=== PATIENT | male | born 1960 | race Caucasian/White ===

== ENCOUNTER 2018-12-24 21:19 | Inpatient (IN) ==
[2018-12-24] MEDS ORDERED: Piperacillin/Tazobactam 3.375 GM in Water for inj. (sterile) 20 ML 20 ML IVP ONE (22:15)
[2018-12-24] MEDS: *HR* HYDROmorphone (PF) 1 MG/ML SYRINGE IVP ONE ×2 (22:20→22:27)
--- NOTE | 2018-12-24 22:24 | Acute Care Surgery H&P ---
Date of Encounter: 12/24/18 Time of Encounter: 22:22 Assessment and Plan (1) Diverticulitis Current Visit: Yes Status: Acute 58M with perforated diverticulitis and peritonitis on exam; HDS NPO IVF IV abx plan for OR for rosario's procedure... The assessment and plan as outlined above was discussed with the patient and/or family members who expressed understanding and agreement. All questions were answered. History of Present Illness Chief complaint: abdominal pain HPI: Mr. Torres is a 58 year old male H significant for HTN, DM, HLD, prior appendectomy presents with one day history of worsening abdominal pain localized to the LLQ and suprapubic region. The pain is non radiating, but rates a 10/10 with associated anorexia. No reports of fevers, chills, chest pain, nor s hortness of breath. Due to the worsening nature of the pain the patient presents to the ED for evaluation at an OSH. He was subsequently transferred here for further evaluation. A CT scan was obtained which demonstrated significant pneumoperitoneum and inflammation around his sigmoid colon. Past Med Surg Social Fam HX - Past Medical History Medical history: arthritis, diabetes, hypertension Psychiatric history: no psych history - Past Surgical History Surgical History: appendectomy, orthopedic, other Additional surgical history: rotator cuff repair bilat - Social History Smoking Status: Never smoker Smokeless Tobacco Status: No Alcohol use: none Drug use: none - Additional Family History Additional family history: non contributory Medications and Allergies Ascorbate Calcium [Vitamin C] 500 mg PO DAILY 01/03/16 [History] Aspirin 81 mg PO DAILY 01/03/16 [History] Fexofenadine HCl 180 mg PO DAILY 01/03/16 [History] Levothyroxine Sodium [Tirosint] 150 mcg PO DAILY 01/03/16 [History] Metformin HCl [Metformin HCl ER] 2,000 mg PO BID 01/03/16 [History] Nebivolol [Bystolic] 5 mg PO DAILY 01/03/16 [History] Pravastatin Sodium [Pravachol] 80 mg PO DAILY 01/03/16 [History] Empagliflozin [Jardiance] 25 mg PO DAILY 05/20/17 [History] Irbesartan [Avapro] 150 mg PO DAILY 05/20/17 [History] Cyclobenzaprine [Flexeril] 10 mg PO TID #30 tablet 09/10/17 [Rx] Gabapentin [Neurontin] 300 mg PO TID #20 capsule 09/14/17 [Rx] Allergy/AdvReac Type Severity Reaction Status Date / Time Sulfa (Sulfonamide Allergy Hives Verified 12/24/18 21:33 Antibiotics) Review of Systems All systems PM: 12 point ROS negative besides HPI findings General Surgery Exam Initial Vital Signs Temp Pulse Resp BP Pulse Ox 98.4 F 94 24 114/72 94 12/24/18 21:35 12/24/18 21:35 12/24/18 21:35 12/24/18 21:35 12/24/18 21:35 - General physical appearance no distress - Eyes normal ocular movement - ENT normocephalic - Neck trachea midline, no lymphadectomy - Respiratory normal expansion, normal respiratory effort - Cardiovascular Cardiovascular exam: Present: RRR - Abdomen Abdomen general surgery: Present: soft, tender (peritoneal on exam) Abdominal Tenderness: Present: LLQ, suprapubic - Integumentary Integumentary general surgery: Present: warm and dry, no abnormal pigmentation - Neurologic Present: CN 2-12 grossly intact - Musculoskeletal Present: normal posture - Psychiatric Psychiatric general surgery: Present: A&Ox3 Results - Labs All other labs normal. - Imaging CT scan - abdomen: report reviewed, image reviewed CT scan - pelvis: report reviewed, image reviewed
--- NOTE | 2018-12-24 22:34 | Anesthesia Evaluation PreOp ---
Date of Encounter: 12/24/18 Time of Encounter: 23:00 - Past History Planned Operation: Ex lap (likely perforated diverticulum) Cardiac History: HTN, Hyperlipidemia Pulmonary History: SHIVANI Dx CONTENT ARCHITECT History: Denies Any Significant HX Other Medical History: Diabetes Type II Anesthesia History: No Prior Anesthetic Complications, Past Anesthesia (appendectomy, rotator cuff repair) Alcohol Use: none Drug use: none Medications and Allergies Ascorbate Calcium [Vitamin C] 500 mg PO DAILY 01/03/16 [History] Aspirin 81 mg PO DAILY 01/03/16 [History] Fexofenadine HCl 180 mg PO DAILY 01/03/16 [History] Levothyroxine Sodium [Tirosint] 150 mcg PO DAILY 01/03/16 [History] Metformin HCl [Metformin HCl ER] 2,000 mg PO BID 01/03/16 [History] Nebivolol [Bystolic] 5 mg PO DAILY 01/03/16 [History] Pravastatin Sodium [Pravachol] 80 mg PO DAILY 01/03/16 [History] Empagliflozin [Jardiance] 25 mg PO DAILY 05/20/17 [History] Irbesartan [Avapro] 150 mg PO DAILY 05/20/17 [History] Cyclobenzaprine [Flexeril] 10 mg PO TID #30 tablet 09/10/17 [Rx] Gabapentin [Neurontin] 300 mg PO TID #20 capsule 09/14/17 [Rx] Allergy/AdvReac Type Severity Reaction Status Date / Time Sulfa (Sulfonamide Allergy Hives Verified 12/24/18 21:33 Antibiotics) - Meds/Allergy Pre-op Review Medications Reviewed: Yes Allergies Reviewed: Yes Beta Blockers on Current Med List: Yes If Beta Blockers taken, Date/Time (Last Dose taken): 12-24-18 bystolic at 7 am Anesthesia Results - Labs Laboratory Tests 12/24/18 12/24/18 12/24/18 17:30 17:30 17:30 WBC 19.4 H Hgb 15.4 Hct 46.2 Plt Count 163 PT 12.3 H INR 1.1 APTT 28.4 Sodium 134 L Potassium 3.6 Chloride 101 Carbon Dioxide 21 L BUN 19 Creatinine 0.89 Est GFR ( Amer) > 60 Est GFR (Non-Af Amer) > 60 BUN/Creatinine Ratio 21 Glucose 199 H Calculated Osmolality 286 Lactic Acid Calcium 9.5 12/24/18 17:30 WBC Hgb Hct Plt Count PT INR APTT Sodium Potassium Chloride Carbon Dioxide BUN Creatinine Est GFR ( Amer) Est GFR (Non-Af Amer) BUN/Creatinine Ratio Glucose Calculated Osmolality Lactic Acid 1.4 Calcium Anesthesia Exam Last Vital Signs Temp 98.4 F 12/24/18 21:38 Pulse 93 12/24/18 22:00 Resp 20 12/24/18 22:00 BP 115/75 12/24/18 22:00 Pulse Ox 95 12/24/18 22:00 Weight: 110 kg NPO (# of Hours): 11 hours - HEENT Pupil (Motor): Pupils equal, EOMI Mallampati: III Teeth: Normal Oral Opening: Greater than 3 - CONTENT ARCHITECT LOC: Oriented - Cardiac Rhythm: Regular Murmur: None - Pulmonary Breath Sounds: bilateral Clear Respiratory Effort: Symmetrical Anesthesia Assess/Plan ASA Score: 3, E Level of consciousness: Cooperative Anesthetic Plan: General Monitoring Plan: Standard Monitors Recovery Plan: PACU
[2018-12-24] MEDS ORDERED: *HR* Propofol 200 MG/20 ML VIAL IVP ONE (22:41)
[2018-12-24] MEDS ORDERED: Lidocaine -MPF 2% 2 ML VIAL ONE (22:41)
[2018-12-24] MEDS ORDERED: Ondansetron 4 MG/2 ML VIAL ONE (22:41)
[2018-12-24] MEDS ORDERED: *HR* Succinylcholine 200 MG/10 ML VIAL IVP ONE (22:41)
[2018-12-24] MEDS ORDERED: *HR* Midazolam HCl 2 MG/2 ML VIAL ONE (22:41)
[2018-12-24] MEDS ORDERED: *HR* FentaNYL (PF) 100 MCG/2 ML VIAL ONE (22:41)
[2018-12-24] MEDS ORDERED: Dexamethasone 4 MG/ML VIAL ONE ×2 (22:41)
[2018-12-24] MEDS ORDERED: *HR* Etomidate 40 MG/20 ML VIAL IVP ONE (22:41)
[2018-12-24] MEDS ORDERED: Acetaminophen IV 1,000 MG/100 ML INFUS..BTL ONE (22:55)
[2018-12-24] MEDS ORDERED: SUGAMMADEX SODIUM 500 MG/5 ML VIAL IV ONE (22:55)
[2018-12-24] MEDS ORDERED: KETAMINE HCL 50 MG/ML SYRINGE ONE (22:55)
[2018-12-24] MEDS ORDERED: *HR* Rocuronium Bromide 50 MG/5 ML VIAL ONE ×2 (23:15→23:53)
[2018-12-24] MEDS ORDERED: *HR* Promethazine 25 MG/ML VIAL IVP PRN (23:57)
[2018-12-24] MEDS ORDERED: *HR* HYDROmorphone (PF) 1 MG/ML SYRINGE IVP PRN (23:57)
[2018-12-25] MEDS ORDERED: *HR* HYDROMORPHONE 2 MG/ML VIAL ONE (00:33)
--- NOTE | 2018-12-25 01:48 | Operative Note ---
Date of procedure: 12/25/18 Pre-op diagnosis: perforated diverticulitis Post-op diagnosis: same Procedure: exploratory laparotomy sigmoid resection colostomy formationt Implants: none Complications: none Anesthesia: GETA Local Anesthetics: 0.5% Sensorcaine HCL SubQ (cc) Surgeon: Rahat Hendrickson Was there an urology physician assistant present: Yes Taper Operator: Roslyn Cabral Estimated blood loss (cc): 50 Specimen: sigmoid colon Condition: stable Disposition: PACU Procedure in Detail: patient was brought into the operating room suite. placed in the supine position. mechanical dvt prophylaxis was placed. The patient underwent smooth induction of anesthesia. preoperative antibiotics were given. prepped and draped in the usual fashion. A timeout was held identifying correct patient pathology procedure and physician. I created a midline incision and dissected through the abdominal wall layers and entered into the abdomen. It should be stated that there was a lot of intraabdo eduardo fat. I was able to retract the small bowel to expose the left side of the colon. I was able to identify the colon perforation. I then mobilized the sigmoid colon from the lateral abdominal wall by dissecting the white line of toldt. I continued to follow the attachments to the retroperitoneum. I followed along the descending colon in the same manner just distal to the splenic flexure. I then scored the mesentery to create a window to allow for stapling distally. I placed the contour stapler and created the rectal stump. I placed two interrupted sutures of prolene to identify the stump should there be an opportunity for a colostomy takedown. I created a proximal mesenteric window, stapled, and used the impact machine to ligate the mesentery and deliver the specimen. I then continued to mobilize medially to ensure there was adequate length of colon for the colostomy. I placed a 19fr chadd drain in the pelvis. I created a circular incision along the abdomen and dissected through the abdominal wall layers to deliver the proximal colon. I then closed the fascia with a running looped pDS suture. I then turned my attention to the colostomy. I excised the staple line and brooked the colostomy in the usual fashion. I closed the skin with arturo. The patient tolerated the procedure well and was escorted to PACU in stable condition.
[2018-12-25] MEDS ORDERED: *HR* Morphine 30 MG/ 30 ML PCA IVC PRN (02:34)
[2018-12-25] MEDS ORDERED: Naloxone 0.4 MG/ML INJ IVP PRN (02:34)
--- NOTE | 2018-12-25 03:27 | Anesthesia Evaluation Post Op ---
Date of Encounter: 12/25/18 Time of Encounter: 02:30 - Vital Signs Vital Signs: see record - Lungs Lungs: Clear Ascult./Percussion - Airway Airway: Non-obstructed - Cardiovascular Regular Rate - Mental Status Mental Status: Alert & Oriented, Answers Appropriately - Pain Pain Scale: 2 - Nausea Vomiting Nausea Vomiting: Not Present - Hydration Hydration: NPO, Jose catheter - Discharge PostOp Status: Transfer Patient to floor
[2018-12-25 03:49] LABS: Basophils % 0.1 %; Hematocrit 47.3 % (37.5-50.1); Hemoglobin 15.1 g/dL (12.9-16.9); Immature Granulocytes % 0.7 % (0-4); Lymphocytes # 0.8 K/mcL (0.6-4.6); Lymphocytes % 4.5 %; Mean Corpuscular HGB Conc 31.9 g/dL (31.6-35.5); Mean Corpuscular Hemoglobin 29.3 pg (28.0-33.3); Mean Corpuscular Volume 91.7 fL (83.0-100.0); Mean Platelet Volume 9.9 fL (9.4-12.4); Monocytes # 0.9 K/mcL (0.0-1.3); Monocytes % 5.1 %; Neutrophils # 16.5 K/mcL (1.6-8.9); Platelet Count 168 K/mcL (140-400); Red Blood Count 5.16 M/mcL (4.19-5.50); Red Cell Distribution Width 13.4 % (11.5-14.5); Segmented Neutrophils % 89.6 %; White Blood Count 18.4 K/mcL (4.3-11.1)
[2018-12-25 04:11] LABS: BUN/Creatinine Ratio 18 (6-26); Blood Urea Nitrogen 17 mg/dL (8-23); Calcium 8.9 mg/dL (8.6-10.3); Carbon Dioxide 19 mEq/L (23-29); Chloride 106 mEq/L (98-107); Glucose 203 mg/dL (70-105); Magnesium 1.7 mg/dL (1.6-2.6); Osmolality,Calculated 291 (280-300); Phosphorous 4.2 mg/dL (2.7-4.5); Potassium 4.2 mEq/L (3.5-5.1); Sodium 137 mEq/L (136-145); eGFR For African Americans > 60 (> 60); eGFR For Non-African Americans > 60 (> 60)
[2018-12-25] MEDS: 0.9 % Sodium Chloride 1,000 ML IVC SCH ×2 (04:14→14:30)
[2018-12-25] MEDS: Gabapentin 300 MG CAPSULE PO SCH ×3 (07:55→20:09)
--- NOTE | 2018-12-25 11:16 | AcuteCareSurgery Progress Note ---
<Pan Diaz P - Last Filed: 12/25/18 16:40> Date of Encounter: 12/25/18 Time of Encounter: 11:00 - Assessment and Plan (1) Diverticulitis Current Visit: Yes Status: Acute * He is 58 year old male PMH significant for HTN, DM, HLD, prior appendectomy presents with one day history of worsening abdominal pain localized to the LLQ and suprapubic region. * CT scan demonstrated significant pneumoperitoneum and inflammation around his sigmoid colon. * On 12/25/2018 :exploratory laparotomy sigmoid resection colostomy formation done * Today is first postoperative day, patient is gradually getting better after surgery * His vital signs stable, postop hemoglobin 15.1 and white cell count 18.4 Plan: * Gradually advance diet starting from ICU to clear liquid * Increase activity as tolerated * Adequate analgesia. * Intake and output, monitor vital * GI and DVT prophylaxis * Intensive spirometry * Trends labs Subjective Patient reports: no new complaints, feels better, pain is less, no flatus, no bowel movement, afebrile Narrative: He is is a 58 year old male PMH significant for HTN, DM, HLD, prior appendectomy presents with one day history of worsening abdominal pain localized to the LLQ and suprapubic region. Today exploratory laparotomy sigmoid resection colostomy formationdone ( 12/25/2018 ) . Patient is improving gradually,His vital signs stable, sub-hemoglobin is 15.1 and white cell count 18.4, we removed the catheter and NG tube. We are planning to gradually advance diet from ice chips to clear liquid today. Objective Vital Signs - Last 8 Hours Temp Pulse Resp BP Pulse Ox 12/25/18 05:30 97.6 F 77 16 134/86 93 12/25/18 04:30 97.6 F 77 18 124/80 92 12/25/18 03:21 97.5 F L 80 16 120/71 92 Intake and Output 12/24/18 12/25/18 12/25/18 23:59 07:59 15:59 Intake Total 0 / 0 Output Total 1725 / 1725 Balance -1725 / -1725 Intake: IV Fluids Zosyn 3.375 GM In Water for inj . (sterile) 20 ML @ 400 mls/hr IVP ONCE ONE Rx#:[id number] Oral 0 / 0 Output: Urine 1000 / 1000 Estimated Blood Loss 50 / 50 Catheter 675 / 675 Other: Stool Characteristics Normal for Patient Stool Color Brown Weight 109.996 kg Blood Glucose* 191 - General physical appearance well nourished, moderate pain - Eyes PERRL, normal ocular movement - ENT normal mucosa - Neck Neck exam: trachea midline, no lymphadectomy - Respiratory normal expansion, normal respiratory effort, clear to percussion - Cardiovascular Cardiovascular exam: Present: RRR, regular rhythm, no murmurs/rubs/gallops - Abdomen Abdomen: Present: soft, distended, tender. Absent: guarding, rebound, rigid, peritoneal, organomegaly Abdominal Tenderness: diffusely Hernia: none - Incision Incision: Present: clean and dry, intact - Integumentary no rash - Neurologic CN 2-12 grossly intact, normal coordination, normal sensation - Musculoskeletal normal gait - Psychiatric oriented to time, oriented to person, oriented to place - Labs 12/25/18 03:27 12/25/18 03:27 Diabetes panel 12/25/18 Range/Units 03:27 Sodium 137 (136-145) mEq/L Potassium 4.2 (3.5-5.1) mEq/L Chloride 106 (98-107) mEq/L Carbon Dioxide 19 L (23-29) mEq/L BUN 17 (8-23) mg/dL Creatinine 0.93 (0.70-1.30) mg/dL Glucose 203 H (70-105) mg/dL Calcium 8.9 (8.6-10.3) mg/dL Calcium panel 12/25/18 Range/Units 03:27 Calcium 8.9 (8.6-10.3) mg/dL Phosphorus 4.2 (2.7-4.5) mg/dL Pituitary panel 12/25/18 Range/Units 03:27 Sodium 137 (136-145) mEq/L Potassium 4.2 (3.5-5.1) mEq/L Chloride 106 (98-107) mEq/L Carbon Dioxide 19 L (23-29) mEq/L BUN 17 (8-23) mg/dL Creatinine 0.93 (0.70-1.30) mg/dL Glucose 203 H (70-105) mg/dL Calcium 8.9 (8.6-10.3) mg/dL Adrenal panel 12/25/18 Range/Units 03:27 Sodium 137 (136-145) mEq/L Potassium 4.2 (3.5-5.1) mEq/L Chloride 106 (98-107) mEq/L Carbon Dioxide 19 L (23-29) mEq/L BUN 17 (8-23) mg/dL Creatinine 0.93 (0.70-1.30) mg/dL Glucose 203 H (70-105) mg/dL Calcium 8.9 (8.6-10.3) mg/dL - Imaging Chest x-ray: report reviewed CT scan - abdomen: report reviewed Consult Discharge Plan - Plan Referrals: Jer Baires DO [Primary Care Provider] - <Rahat Hendrickson - Last Filed: 12/25/18 17:58> Date of Encounter: 12/25/18 - Assessment and Plan (1) Diverticulitis Current Visit: Yes Status: Inactive Objective Vital Signs - Last 8 Hours Temp Pulse Resp BP Pulse Ox 12/25/18 15:19 99.0 F 83 17 118/71 93 12/25/18 11:28 98.0 F 80 18 129/73 94 Intake and Output 12/25/18 12/25/18 12/25/18 07:59 15:59 23:59 Intake Total 0 / 1000 1000 / 1000 Output Total 1725 / 3175 1450 / 3175 Balance -1725 / -2175 -450 / -2175 Intake: IV Fluids 1000 / 1000 0.9 % Sodium Chloride 1,000 ML 1000 / 1000 @ 100 mls/hr IVC .Q10H [facility] Rx#: [id number] Oral 0 / 0 Output: Urine 1000 / 1000 Estimated Blood Loss 50 / 50 Catheter 675 / 2125 1450 / 2125 Other: Meal npo Blood Glucose* 191 111 103 - Labs 12/25/18 03:27 12/25/18 03:27 Diabetes panel 12/25/18 Range/Units 03:27 Sodium 137 (136-145) mEq/L Potassium 4.2 (3.5-5.1) mEq/L Chloride 106 (98-107) mEq/L Carbon Dioxide 19 L (23-29) mEq/L BUN 17 (8-23) mg/dL Creatinine 0.93 (0.70-1.30) mg/dL Glucose 203 H (70-105) mg/dL Calcium 8.9 (8.6-10.3) mg/dL Calcium panel 12/25/18 Range/Units 03:27 Calcium 8.9 (8.6-10.3) mg/dL Phosphorus 4.2 (2.7-4.5) mg/dL Pituitary panel 12/25/18 Range/Units 03:27 Sodium 137 (136-145) mEq/L Potassium 4.2 (3.5-5.1) mEq/L Chloride 106 (98-107) mEq/L Carbon Dioxide 19 L (23-29) mEq/L BUN 17 (8-23) mg/dL Creatinine 0.93 (0.70-1.30) mg/dL Glucose 203 H (70-105) mg/dL Calcium 8.9 (8.6-10.3) mg/dL Adrenal panel 12/25/18 Range/Units 03:27 Sodium 137 (136-145) mEq/L Potassium 4.2 (3.5-5.1) mEq/L Chloride 106 (98-107) mEq/L Carbon Dioxide 19 L (23-29) mEq/L BUN 17 (8-23) mg/dL Creatinine 0.93 (0.70-1.30) mg/dL Glucose 203 H (70-105) mg/dL Calcium 8.9 (8.6-10.3) mg/dL - Attending Attestation patient seen and examined. i have reviewed all labs, imaging, and notes. I have discussed the case with the resident in detail. I agree with the above assessment and plan and wish to add the following... 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
[2018-12-26] MEDS: Gabapentin 300 MG CAPSULE PO SCH ×3 (08:05→21:54)
[2018-12-26] MEDS: *HR* Enoxaparin 40 MG/0.4 ML SYRINGE SQ SCH (08:05)
--- NOTE | 2018-12-26 12:16 | AcuteCareSurgery Progress Note ---
<Pan Diaz P - Last Filed: 12/26/18 22:26> Date of Encounter: 12/26/18 Time of Encounter: 11:45 - Assessment and Plan (1) Diverticulitis Current Visit: Yes Status: Acute * He is 58 year old male PMH significant for HTN, DM, HLD, prior appendectomy presents with one day history of worsening abdominal pain localized to the LLQ and suprapubic region. * CT scan demonstrated significant pneumoperitoneum and inflammation around his sigmoid colon. * On 12/25/2018 :exploratory laparotomy sigmoid resection colostomy formation done * Today is second postoperative day, patient is gradually getting better after surgery * His vital signs stable, he is afebrile postop hemoglobin 15.1 and white cell count 18.4 Plan: * Gradually advance diet starting clear liquid * Increase activity as tolerated * Adequate analgesia. * Intake and output, monitor vital * GI and DVT prophylaxis * Intensive spirometry * Trends labs Subjective Patient reports: no new complaints, feels better, pain is less, flatus, no bowel movement, afebrile Narrative: He is is a 58 year old male PMH significant for HTN, DM, HLD, prior appendectomy presents with one day history of worsening abdominal pain localized to the LLQ and suprapubic region. Today 2nd POD after exploratory laparotomy sigmoid resection colostomy formationdone ( 12/25/2018 ) . Patient is improving gradually,His vital signs stable, post op -hemoglobin is 15.1 and white cell count 18.4, we removed the catheter and NG tube. We are planning to gradually advance diet from ice chips to clear liquid today. Objective Intake and Output 12/25/18 12/26/18 12/26/18 23:59 07:59 15:59 Intake Total 120 / 1120 0 / 1000 1000 / 1000 Output Total 790 / 3965 1150 / 1165 15 / 1165 Balance -670 / -2845 -1150 / -165 985 / -165 Intake: IV Fluids 1000 / 1000 0.9 % Sodium Chloride 1,000 ML 1000 / 1000 @ 100 mls/hr IVC .Q10H [facility] Rx#: [id number] Oral 120 / 120 0 / 0 0 / 0 Output: Stool 0 / 0 Catheter 750 / 2875 1150 / 1150 Wound Drainage 40 / 40 0 / 15 15 / 15 Right Abdomen 40 / 40 0 / 15 15 15 Other: Meal NPO # Bowel Movements 0 Weight 110.4 kg Blood Glucose* 103 115 Patient Weight 12/26/18 23:59 Weight 110.4 kg - General physical appearance well nourished, no distress, moderate distress - Eyes PERRL, normal ocular movement - ENT normal mucosa - Neck Neck exam: no bruits, trachea midline, no lymphadectomy, no venous distension - Respiratory normal expansion, normal respiratory effort, clear to percussion, clear to auscultation - Cardiovascular Cardiovascular exam: Present: RRR, regular rhythm, no murmurs/rubs/gallops - Abdomen Abdomen: Present: soft, distended, tender. Absent: guarding, rebound, rigid - Incision Incision: Present: clean and dry, intact - Integumentary no rash - Neurologic CN 2-12 grossly intact, normal coordination, normal sensation - Musculoskeletal normal gait - Psychiatric oriented to time, oriented to person, oriented to place, speech is normal - Labs 12/25/18 03:27 12/25/18 03:27 Consult Discharge Plan - Plan Referrals: Jer Baires DO [Primary Care Provider] - <Rahat Hendrickson - Last Filed: 12/27/18 16:12> Date of Encounter: 12/27/18 - Assessment and Plan (1) Diverticulitis Current Visit: Yes Status: Inactive Objective Vital Signs - Last 8 Hours Temp Pulse Resp BP Pulse Ox 12/27/18 14:55 98.8 F 89 16 131/76 90 12/27/18 11:51 98.2 F 77 16 145/84 93 12/27/18 08:39 92 Intake and Output 12/27/18 12/27/18 12/27/18 07:59 15:59 23:59 Intake Total 1000 / 2200 1200 / 2200 Output Total 1550 / 3280 1730 / 3280 Balance -550 / -1080 -530 / -1080 Intake: IV Fluids 1000 / 1000 0.9 % Sodium Chloride 1,000 ML 1000 / 1000 @ 100 mls/hr IVC .Q10H [facility] Rx#: [id number] Oral 0 / 1200 1200 / 1200 Output: Stool 0 / 150 150 / 150 Catheter 1550 / 3100 1550 / 3100 Wound Drainage 30 / 30 Right Abdomen 30 / 30 Other: Meal Lunch Percent of Meal Consumed 90% Stool Consistency liquid Stool Color Brown # Bowel Movements 0 Weight 111 kg Patient Weight 12/27/18 23:59 Weight 111 kg - Labs 12/27/18 01:02 12/27/18 01:02 Diabetes panel 12/27/18 Range/Units 01:02 Sodium 136 (136-145) mEq/L Potassium 3.6 (3.5-5.1) mEq/L Chloride 106 (98-107) mEq/L Carbon Dioxide 17 L (23-29) mEq/L BUN 18 (8-23) mg/dL Creatinine 0.64 L (0.70-1.30) mg/dL Glucose 116 H (70-105) mg/dL Calcium 8.4 L (8.6-10.3) mg/dL Calcium panel 12/27/18 12/27/18 Range/Units 01:02 01:02 Calcium 8.4 L (8.6-10.3) mg/dL Phosphorus 1.4 L (2.7-4.5) mg/dL Pituitary panel 12/27/18 Range/Units 01:02 Sodium 136 (136-145) mEq/L Potassium 3.6 (3.5-5.1) mEq/L Chloride 106 (98-107) mEq/L Carbon Dioxide 17 L (23-29) mEq/L BUN 18 (8-23) mg/dL Creatinine 0.64 L (0.70-1.30) mg/dL Glucose 116 H (70-105) mg/dL Calcium 8.4 L (8.6-10.3) mg/dL Adrenal panel 12/27/18 Range/Units 01:02 Sodium 136 (136-145) mEq/L Potassium 3.6 (3.5-5.1) mEq/L Chloride 106 (98-107) mEq/L Carbon Dioxide 17 L (23-29) mEq/L BUN 18 (8-23) mg/dL Creatinine 0.64 L (0.70-1.30) mg/dL Glucose 116 H (70-105) mg/dL Calcium 8.4 L (8.6-10.3) mg/dL - Attending Attestation please see ACS note placed by Dr. Hendrickson on the same day for the A/P
[2018-12-26] MEDS: 0.9 % Sodium Chloride 1,000 ML IVC SCH ×3 (12:25→21:54)
--- NOTE | 2018-12-26 18:18 | AcuteCareSurgery Progress Note ---
Date of Encounter: 12/26/18 Time of Encounter: 18:15 - Assessment and Plan (1) Diverticulitis Current Visit: Yes Status: Inactive 58M PMH significant DM, OA, HTN POD #1 s/p sigmoid resection and colostomy formation; pain controlled, ambulating, tolerating ice chips; colostomy functioning d.c white cont with curent pain regimen AM labs cont IV abx colostomy education IS usage PT/OT okay for CLD Subjective Patient reports: no new complaints, feels better, still having pain, pain is less, tolerating liquids well, flatus, bowel movement, afebrile Objective Vital Signs - Last 8 Hours Temp Pulse Resp BP Pulse Ox 12/26/18 15:56 98.2 F 79 15 134/82 93 Intake and Output 12/26/18 12/26/18 12/26/18 07:59 15:59 23:59 Intake Total 0 / 2100 2099 / 2099 Output Total 1150 / 3375 2225 / 3375 Balance -1150 / -1275 -125 / -1275 Intake: IV Fluids 2099 0.9 % Sodium Chloride 1,000 ML 2000 / 2000 @ 100 mls/hr IVC .Q10H [facility] Rx#: [id number] Magnesium Sulfate 1 GM In 0.9 % 100 / 100 Sodium Chloride 100 ML @ 100 mls/hr IVPB ONCE ONE Rx#: [id number] Oral 0 / 0 0 / 0 Output: Urine 1550 / 1550 Catheter 1150 / 1800 650 / 1800 Wound Drainage 0 / 25 25 / 25 Right Abdomen 0 / 25 25 / 25 Other: Meal npo # Bowel Movements 0 Weight 110.4 kg Blood Glucose* 115 Patient Weight 12/26/18 23:59 Weight 110.4 kg - General physical appearance no distress - Respiratory normal expansion, normal respiratory effort - Cardiovascular Cardiovascular exam: Present: RRR - Abdomen Abdomen: Present: soft, tender (appropriately tender) - Incision Incision: Present: clean and dry, intact - Neurologic CN 2-12 grossly intact - Musculoskeletal normal posture - Psychiatric oriented to time, oriented to person, oriented to place - Labs 12/25/18 03:27 12/25/18 03:27 Consult Discharge Plan - Plan Referrals: Jer Baires DO [Primary Care Provider] -
[2018-12-27 01:40] LABS: Basophils % 0.3 %; Eosinophils # 0.1 K/mcL (0.0-0.6); Eosinophils % 1.1 %; Hematocrit 40.4 % (37.5-50.1); Immature Granulocytes % 0.6 % (0-4); Lymphocytes # 1.5 K/mcL (0.6-4.6); Lymphocytes % 11.9 %; Mean Corpuscular HGB Conc 32.2 g/dL (31.6-35.5); Mean Corpuscular Volume 93.3 fL (83.0-100.0); Monocytes # 1.1 K/mcL (0.0-1.3); Monocytes % 9.1 %; Neutrophils # 9.4 K/mcL (1.6-8.9); Platelet Count 173 K/mcL (140-400); Red Blood Count 4.33 M/mcL (4.19-5.50); Red Cell Distribution Width 13.2 % (11.5-14.5); White Blood Count 12.3 K/mcL (4.3-11.1)
[2018-12-27 02:02] LABS: BUN/Creatinine Ratio 28 (6-26); Blood Urea Nitrogen 18 mg/dL (8-23); Calcium 8.4 mg/dL (8.6-10.3); Carbon Dioxide 17 mEq/L (23-29); Chloride 106 mEq/L (98-107); Glucose 116 mg/dL (70-105); Magnesium 1.8 mg/dL (1.6-2.6); Osmolality,Calculated 285 (280-300); Phosphorous 1.4 mg/dL (2.7-4.5); Potassium 3.6 mEq/L (3.5-5.1); Sodium 136 mEq/L (136-145); eGFR For African Americans > 60 (> 60); eGFR For Non-African Americans > 60 (> 60)
[2018-12-27] MEDS: *HR* Enoxaparin 40 MG/0.4 ML SYRINGE SQ SCH (06:19)
[2018-12-27] MEDS: 0.9 % Sodium Chloride 1,000 ML IVC SCH ×2 (08:19→18:41)
[2018-12-27] MEDS: Gabapentin 300 MG CAPSULE PO SCH ×3 (08:20→20:32)
--- NOTE | 2018-12-27 08:50 | AcuteCareSurgery Progress Note ---
<Pan Diaz P - Last Filed: 12/27/18 11:48> Date of Encounter: 12/27/18 Time of Encounter: 08:30 - Assessment and Plan (1) Diverticulitis Current Visit: Yes Status: Acute * Today is second postoperative after exploratory laparotomy sigmoid resection colostomy formation The patient was admitted for one day history of worsening abdominal pain localized to the LLQ and suprapubic region. Abdominal and Pelvis CT scan had demonstrated significant pneumoperitoneum and inflammation around his sigmoid colon * Post op , he is afebrile ,abdominal pain is less, but no gas and bowel movement yet, other vitals are stable * Colostomy is well functioning .Postop labs: white count trending down 12.3 - 8.4, postop hemoglobin 13 Plan * Gradually advance diet starting ice chips to clear liquid * Increase activity as tolerated * Colostomy education * PT /OT consultation * Adequate analgesia. * Intake and output, monitor vital * GI and DVT prophylaxis * Intensive spirometry * Trends labs Subjective Patient reports: still having pain, pain is less, no flatus, no bowel movement, fever Narrative: He is is a 58 year old male admitted for severe abdominal pain, exploratory laparotomy sigmoid resection colostomy formation done ( 12/25/2018 ) . Today is second postoperative day. Patient is improving gradually,His vital signs stable, post op -hemoglobin is 12.3 and white cell count 13.0, we already removed white's catheter and NG tube. We are planning to gradually advance diet from ice chips to clear liquid today. We have planned to consult for PT ,OT and colostomy educator today . Objective Vital Signs - Last 8 Hours Temp Pulse Resp BP Pulse Ox 12/27/18 06:56 98.3 F 83 15 151/84 92 12/27/18 03:11 98.4 F 82 16 127/74 92 Intake and Output 12/26/18 12/27/18 12/27/18 23:59 07:59 15:59 Intake Total 1000 / 3100 1000 / 1000 Output Total 950 / 4325 1550 / 1550 Balance 50 / -1225 -550 / -550 Intake: IV Fluids 1000 / 3100 1000 / 1000 0.9 % Sodium Chloride 1,000 ML 1000 / 3000 1000 / 1000 @ 100 mls/hr IVC .Q10H [facility] Rx#: [id number] Oral 0 / 0 Output: Stool 0 / 0 Catheter 950 / 2750 1550 / 1550 Other: # Bowel Movements 0 Weight 111 kg Patient Weight 12/27/18 23:59 Weight 111 kg - General physical appearance well developed, no distress, moderate pain - Eyes PERRL, normal ocular movement - ENT normal mucosa - Neck Neck exam: no masses, trachea midline, no lymphadectomy - Respiratory normal expansion, normal respiratory effort, clear to percussion, clear to auscultation - Abdomen Abdomen: Present: soft, distended, tender. Absent: guarding, rebound, rigid Abdominal Tenderness: LLQ Hernia: none - Incision Incision: Present: clean and dry, intact - Integumentary no rash - Neurologic CN 2-12 grossly intact, normal coordination, normal sensation - Musculoskeletal normal gait, normal posture - Psychiatric oriented to time, oriented to person, oriented to place, speech is normal, memory intact - Labs 12/27/18 01:02 12/27/18 01:02 Diabetes panel 12/27/18 Range/Units 01:02 Sodium 136 (136-145) mEq/L Potassium 3.6 (3.5-5.1) mEq/L Chloride 106 (98-107) mEq/L Carbon Dioxide 17 L (23-29) mEq/L BUN 18 (8-23) mg/dL Creatinine 0.64 L (0.70-1.30) mg/dL Glucose 116 H (70-105) mg/dL Calcium 8.4 L (8.6-10.3) mg/dL Calcium panel 12/27/18 12/27/18 Range/Units 01:02 01:02 Calcium 8.4 L (8.6-10.3) mg/dL Phosphorus 1.4 L (2.7-4.5) mg/dL Pituitary panel 12/27/18 Range/Units 01:02 Sodium 136 (136-145) mEq/L Potassium 3.6 (3.5-5.1) mEq/L Chloride 106 (98-107) mEq/L Carbon Dioxide 17 L (23-29) mEq/L BUN 18 (8-23) mg/dL Creatinine 0.64 L (0.70-1.30) mg/dL Glucose 116 H (70-105) mg/dL Calcium 8.4 L (8.6-10.3) mg/dL Adrenal panel 12/27/18 Range/Units 01:02 Sodium 136 (136-145) mEq/L Potassium 3.6 (3.5-5.1) mEq/L Chloride 106 (98-107) mEq/L Carbon Dioxide 17 L (23-29) mEq/L BUN 18 (8-23) mg/dL Creatinine 0.64 L (0.70-1.30) mg/dL Glucose 116 H (70-105) mg/dL Calcium 8.4 L (8.6-10.3) mg/dL - Imaging CT scan - abdomen: report reviewed Consult Discharge Plan - Plan Referrals: Jer Baires DO [Primary Care Provider] - <Jaison Estrada - Last Filed: 12/27/18 13:23> Date of Encounter: 12/27/18 Objective Vital Signs - Last 8 Hours Temp Pulse Resp BP Pulse Ox 12/27/18 11:51 98.2 F 77 16 145/84 93 12/27/18 08:39 92 12/27/18 06:56 98.3 F 83 15 151/84 92 Intake and Output 12/26/18 12/27/18 12/27/18 23:59 07:59 15:59 Intake Total 1000 / 3100 1000 / 1720 720 / 1720 Output Total 950 / 4325 1550 / 2580 1030 / 2580 Balance 50 / -1225 -550 / -860 -310 / -860 Intake: IV Fluids 1000 / 3100 1000 / 1000 0.9 % Sodium Chloride 1,000 ML 1000 / 3000 1000 / 1000 @ 100 mls/hr IVC .Q10H [facility] Rx#: [id number] Oral 0 / 720 720 / 720 Output: Stool 0 / 0 0 / 0 Catheter 950 / 2750 1550 / 2550 1000 / 2550 Wound Drainage 30 / 30 Right Abdomen 30 / 30 Other: Meal CLEARS # Bowel Movements 0 Weight 111 kg Patient Weight 12/27/18 23:59 Weight 111 kg - Labs 12/27/18 01:02 12/27/18 01:02 Diabetes panel 12/27/18 Range/Units 01:02 Sodium 136 (136-145) mEq/L Potassium 3.6 (3.5-5.1) mEq/L Chloride 106 (98-107) mEq/L Carbon Dioxide 17 L (23-29) mEq/L BUN 18 (8-23) mg/dL Creatinine 0.64 L (0.70-1.30) mg/dL Glucose 116 H (70-105) mg/dL Calcium 8.4 L (8.6-10.3) mg/dL Calcium panel 12/27/18 12/27/18 Range/Units 01:02 01:02 Calcium 8.4 L (8.6-10.3) mg/dL Phosphorus 1.4 L (2.7-4.5) mg/dL Pituitary panel 12/27/18 Range/Units 01:02 Sodium 136 (136-145) mEq/L Potassium 3.6 (3.5-5.1) mEq/L Chloride 106 (98-107) mEq/L Carbon Dioxide 17 L (23-29) mEq/L BUN 18 (8-23) mg/dL Creatinine 0.64 L (0.70-1.30) mg/dL Glucose 116 H (70-105) mg/dL Calcium 8.4 L (8.6-10.3) mg/dL Adrenal panel 12/27/18 Range/Units 01:02 Sodium 136 (136-145) mEq/L Potassium 3.6 (3.5-5.1) mEq/L Chloride 106 (98-107) mEq/L Carbon Dioxide 17 L (23-29) mEq/L BUN 18 (8-23) mg/dL Creatinine 0.64 L (0.70-1.30) mg/dL Glucose 116 H (70-105) mg/dL Calcium 8.4 L (8.6-10.3) mg/dL - Attending Attestation I examined this patient and my medical decision-making was reviewed with the Resident Physician. I agree with the documented findings, disposition and treatment plan as described except to the extent set forth below. The patient is seen and evaluated morning rounds with the acute care surgery team. The patient had Cuevas's procedure for perforated diverticulitis. His pain is much improved after surgery. He has stool and flatus in the ostomy bag. We should be able to his advance his diet today Jaison Estrada MD FACS
[2018-12-27] MEDS: MORPHINE IVC PRN (12:39)
[2018-12-27] MEDS: PCA IVC PRN (12:39)
[2018-12-28] MEDS: 0.9 % Sodium Chloride 1,000 ML IVC SCH (04:05)
[2018-12-28 04:42] LABS: Basophils # 0.1 K/mcL (0.0-0.2); Basophils % 0.5 %; Eosinophils # 0.2 K/mcL (0.0-0.6); Eosinophils % 2.3 %; Hematocrit 41.6 % (37.5-50.1); Hemoglobin 13.4 g/dL (12.9-16.9); Immature Granulocytes % 1.2 % (0-4); Lymphocytes # 1.3 K/mcL (0.6-4.6); Lymphocytes % 13.4 %; Mean Corpuscular HGB Conc 32.2 g/dL (31.6-35.5); Mean Corpuscular Hemoglobin 28.9 pg (28.0-33.3); Mean Corpuscular Volume 89.7 fL (83.0-100.0); Mean Platelet Volume 9.8 fL (9.4-12.4); Monocytes % 10.3 %; Neutrophils # 6.9 K/mcL (1.6-8.9); Platelet Count 182 K/mcL (140-400); Red Blood Count 4.64 M/mcL (4.19-5.50); Red Cell Distribution Width 12.7 % (11.5-14.5); Segmented Neutrophils % 72.3 %; White Blood Count 9.5 K/mcL (4.3-11.1)
[2018-12-28 04:59] LABS: BUN/Creatinine Ratio 19 (6-26); Blood Urea Nitrogen 11 mg/dL (8-23); Calcium 8.5 mg/dL (8.6-10.3); Carbon Dioxide 22 mEq/L (23-29); Chloride 104 mEq/L (98-107); Glucose 159 mg/dL (70-105); Magnesium 1.7 mg/dL (1.6-2.6); Osmolality,Calculated 285 (280-300); Phosphorous 2.2 mg/dL (2.7-4.5); Potassium 3.5 mEq/L (3.5-5.1); Sodium 136 mEq/L (136-145); eGFR For African Americans > 60 (> 60); eGFR For Non-African Americans > 60 (> 60)
[2018-12-28] MEDS: *HR* Enoxaparin 40 MG/0.4 ML SYRINGE SQ SCH (05:59)
[2018-12-28] MEDS: Gabapentin 300 MG CAPSULE PO SCH ×3 (09:05→21:49)
[2018-12-28] MEDS: D5% in 0.45% NACL w KCl 20 MEQ/1,000 ML MLS IVC SCH ×2 (09:06→22:34)
[2018-12-28] MEDS: Piperacillin/Tazobactam 3.375 GM in 0.9 % Sodium Chloride Mini Bag 100 ML IVPB SCH ×3 (09:06→23:56)
--- NOTE | 2018-12-28 10:27 | AcuteCareSurgery Progress Note ---
<Pan Diaz P - Last Filed: 12/28/18 10:45> Date of Encounter: 12/28/18 Time of Encounter: 10:15 - Assessment and Plan (1) Diverticulitis Current Visit: Yes Status: Acute * Today is second postoperative after exploratory laparotomy sigmoid resection colostomy formation The patient was admitted for one day history of worsening abdominal pain localized to the LLQ and suprapubic region. Abdominal and Pelvis CT scan had demonstrated significant pneumoperitoneum and inflammation around his sigmoid colon * Post op , he is afebrile ,abdominal pain is less, but no gas and bowel movement yet, other vitals are stable * Colostomy is well functioning .Postop labs: white count trending down 12.3 - 8.4, postop hemoglobin 13 Plan * Gradually advance diet starting ice chips to clear liquid * Increase activity as tolerated * Colostomy education * PT /OT consultation * Adequate analgesia. * Intake and output, monitor vital * GI and DVT prophylaxis * Intensive spirometry * Trends labs Subjective Patient reports: no new complaints, feels better, pain is less, flatus, afebrile Narrative: He is is a 58 year old male admitted for severe abdominal pain, exploratory laparotomy sigmoid resection colostomy formation done ( 12/25/2018 ) . Today is 3rd postoperative day. Patient is improving gradually. His vitals are normal, afebrile, post op labs : WBC 9.5, HB 13.4 , Na 136, K 3.5. Wound yamil 20 ml, Urine output : adequate We are planning to gradually advance diet full li quid today. We have consulted colostomy educator today . We appreciate PT and OT recommendation. We have encouraged him to ambulate as he tolerates. Objective Vital Signs - Last 8 Hours Temp Pulse Resp BP Pulse Ox 12/28/18 06:49 98.2 F 76 16 134/79 93 12/28/18 05:17 98.3 F 73 16 147/78 93 Intake and Output 12/27/18 12/28/18 12/28/18 23:59 07:59 15:59 Intake Total 1000 / 3200 1000 / 1600 600 / 1600 Output Total 1020 / 4300 2620 / 2620 Balance -20 / -1100 -1620 / -1020 600 / -1020 Intake: IV Fluids 1000 / 2000 1000 / 1000 0.9 % Sodium Chloride 1,000 ML 1000 / 2000 1000 / 1000 @ 100 mls/hr IVC .Q10H [facility] Rx#: [id number] Oral 0 / 1200 0 / 600 600 / 600 Output: Stool 0 / 0 Catheter 1000 / 4100 2600 / 2600 Wound Drainage 20 Right Abdomen Other: Weight 111.4 kg Patient Weight 12/28/18 23:59 Weight 111.4 kg - General physical appearance well developed, well nourished, no distress - Eyes PERRL, normal ocular movement - ENT normal mucosa, no congestion - Neck Neck exam: no masses, trachea midline, no lymphadectomy, no venous distension - Abdomen Abdomen: Present: bowel sounds present, soft, non tender Hernia: none - Incision Incision: Present: clean and dry, intact - Integumentary no rash - Neurologic CN 2-12 grossly intact, normal coordination - Musculoskeletal normal gait - Psychiatric oriented to time, oriented to person, oriented to place, speech is normal - Labs 12/28/18 04:04 12/28/18 04:04 Diabetes panel 12/28/18 Range/Units 04:04 Sodium 136 (136-145) mEq/L Potassium 3.5 (3.5-5.1) mEq/L Chloride 104 (98-107) mEq/L Carbon Dioxide 22 L (23-29) mEq/L BUN 11 (8-23) mg/dL Creatinine 0.59 L (0.70-1.30) mg/dL Glucose 159 H (70-105) mg/dL Calcium 8.5 L (8.6-10.3) mg/dL Calcium panel 12/28/18 Range/Units 04:04 Calcium 8.5 L (8.6-10.3) mg/dL Phosphorus 2.2 L (2.7-4.5) mg/dL Pituitary panel 12/28/18 Range/Units 04:04 Sodium 136 (136-145) mEq/L Potassium 3.5 (3.5-5.1) mEq/L Chloride 104 (98-107) mEq/L Carbon Dioxide 22 L (23-29) mEq/L BUN 11 (8-23) mg/dL Creatinine 0.59 L (0.70-1.30) mg/dL Glucose 159 H (70-105) mg/dL Calcium 8.5 L (8.6-10.3) mg/dL Adrenal panel 12/28/18 Range/Units 04:04 Sodium 136 (136-145) mEq/L Potassium 3.5 (3.5-5.1) mEq/L Chloride 104 (98-107) mEq/L Carbon Dioxide 22 L (23-29) mEq/L BUN 11 (8-23) mg/dL Creatinine 0.59 L (0.70-1.30) mg/dL Glucose 159 H (70-105) mg/dL Calcium 8.5 L (8.6-10.3) mg/dL Consult Discharge Plan - Plan Referrals: Jer Baires DO [Primary Care Provider] - <Jaison Estrada T - Last Filed: 12/28/18 10:51> Date of Encounter: 12/28/18 Objective Vital Signs - Last 8 Hours Temp Pulse Resp BP Pulse Ox 12/28/18 06:49 98.2 F 76 16 134/79 93 12/28/18 05:17 98.3 F 73 16 147/78 93 Intake and Output 12/27/18 12/28/18 12/28/18 23:59 07:59 15:59 Intake Total 1000 / 3200 1000 / 1600 600 / 1600 Output Total 1020 / 4300 2620 / 2620 Balance -20 / -1100 -1620 / -1020 600 / -1020 Intake: IV Fluids 1000 / 2000 1000 / 1000 0.9 % Sodium Chloride 1,000 ML 1000 / 2000 1000 / 1000 @ 100 mls/hr IVC .Q10H [facility] Rx#: [id number] Oral 0 / 1200 0 / 600 600 / 600 Output: Stool 0 / 0 Catheter 1000 / 4100 2600 / 2600 Wound Drainage 20 / 50 20 / 20 Right Abdomen 20 / 50 20 / 20 Other: Weight 111.4 kg Patient Weight 12/28/18 23:59 Weight 111.4 kg - Labs 12/28/18 04:04 12/28/18 04:04 Diabetes panel 12/28/18 Range/Units 04:04 Sodium 136 (136-145) mEq/L Potassium 3.5 (3.5-5.1) mEq/L Chloride 104 (98-107) mEq/L Carbon Dioxide 22 L (23-29) mEq/L BUN 11 (8-23) mg/dL Creatinine 0.59 L (0.70-1.30) mg/dL Glucose 159 H (70-105) mg/dL Calcium 8.5 L (8.6-10.3) mg/dL Calcium panel 12/28/18 Range/Units 04:04 Calcium 8.5 L (8.6-10.3) mg/dL Phosphorus 2.2 L (2.7-4.5) mg/dL Pituitary panel 12/28/18 Range/Units 04:04 Sodium 136 (136-145) mEq/L Potassium 3.5 (3.5-5.1) mEq/L Chloride 104 (98-107) mEq/L Carbon Dioxide 22 L (23-29) mEq/L BUN 11 (8-23) mg/dL Creatinine 0.59 L (0.70-1.30) mg/dL Glucose 159 H (70-105) mg/dL Calcium 8.5 L (8.6-10.3) mg/dL Adrenal panel 12/28/18 Range/Units 04:04 Sodium 136 (136-145) mEq/L Potassium 3.5 (3.5-5.1) mEq/L Chloride 104 (98-107) mEq/L Carbon Dioxide 22 L (23-29) mEq/L BUN 11 (8-23) mg/dL Creatinine 0.59 L (0.70-1.30) mg/dL Glucose 159 H (70-105) mg/dL Calcium 8.5 L (8.6-10.3) mg/dL - Attending Attestation I examined this patient and my medical decision-making was reviewed with the Resident Physician. I agree with the documented findings, disposition and treatment plan as described except to the extent set forth below. The patient is seen and evaluated on morning rounds with the acute care surgery team and the resident. The patient is progressing well and we will advance his diet today. He has good ostomy function and bowel sounds. We will start ostomy education today. Anticipate discharge likely tomorrow Jaison Estrada MD FACS
[2018-12-28] MEDS ORDERED: D5% in Water 1,000 ML IVC PRN (11:33)
[2018-12-28] MEDS ORDERED: *HR* Dextrose 50 % in Water (Syg) 50 ML SYRINGE IVP PRN (11:33)
[2018-12-28] MEDS ORDERED: Dextrose Gel 15 GM/37.5 ML TUBE PO PRN ×2 (11:33)
[2018-12-28] MEDS ORDERED: Insulin LISPRO 300 UNITS/3 ML VIAL SQ ONE (12:25)
[2018-12-28] MEDS: Insulin LISPRO 300 UNITS/3 ML VIAL SQ SCH ×2 (21:48→22:25)
[2018-12-29 05:26] LABS: Basophils # 0.1 K/mcL (0.0-0.2); Basophils % 0.6 %; Eosinophils # 0.3 K/mcL (0.0-0.6); Eosinophils % 3.1 %; Hematocrit 40.5 % (37.5-50.1); Hemoglobin 13.5 g/dL (12.9-16.9); Immature Granulocytes % 2.2 % (0-4); Lymphocytes # 1.6 K/mcL (0.6-4.6); Lymphocytes % 16.8 %; Mean Corpuscular HGB Conc 33.3 g/dL (31.6-35.5); Mean Corpuscular Hemoglobin 29.6 pg (28.0-33.3); Mean Corpuscular Volume 88.8 fL (83.0-100.0); Mean Platelet Volume 9.7 fL (9.4-12.4); Monocytes # 0.9 K/mcL (0.0-1.3); Monocytes % 9.3 %; Neutrophils # 6.3 K/mcL (1.6-8.9); Platelet Count 190 K/mcL (140-400); Red Blood Count 4.56 M/mcL (4.19-5.50); Red Cell Distribution Width 12.5 % (11.5-14.5); White Blood Count 9.3 K/mcL (4.3-11.1)
[2018-12-29 05:44] LABS: BUN/Creatinine Ratio 18 (6-26); Blood Urea Nitrogen 11 mg/dL (8-23); Calcium 8.7 mg/dL (8.6-10.3); Carbon Dioxide 24 mEq/L (23-29); Chloride 103 mEq/L (98-107); Glucose 206 mg/dL (70-105); Magnesium 1.7 mg/dL (1.6-2.6); Osmolality,Calculated 287 (280-300); Phosphorous 3.4 mg/dL (2.7-4.5); Potassium 3.6 mEq/L (3.5-5.1); Sodium 136 mEq/L (136-145); eGFR For African Americans > 60 (> 60); eGFR For Non-African Americans > 60 (> 60)
[2018-12-29] MEDS ORDERED: Piperacillin/Tazobactam 3.375 GM VIAL ONE (08:34)
[2018-12-29] MEDS: Piperacillin/Tazobactam 3.375 GM in 0.9 % Sodium Chloride Mini Bag 100 ML IVPB SCH ×2 (08:35→16:30)
[2018-12-29] MEDS: *HR* Enoxaparin 40 MG/0.4 ML SYRINGE SQ SCH (08:36)
[2018-12-29] MEDS: Gabapentin 300 MG CAPSULE PO SCH ×3 (08:37→21:06)
[2018-12-29] MEDS: Insulin LISPRO 300 UNITS/3 ML VIAL SQ SCH ×4 (08:37→21:06)
--- NOTE | 2018-12-29 10:59 | AcuteCareSurgery Progress Note ---
<Pan Diaz P - Last Filed: 12/29/18 11:57> Date of Encounter: 12/29/18 Time of Encounter: 08:45 - Assessment and Plan (1) Diverticulitis Current Visit: Yes Status: Acute * Today is 4thpostoperative after exploratory laparotomy sigmoid resection colostomy formation on 12/25/2018 > The patient was admitted for one day history of worsening abdominal pain localized to the LLQ and suprapubic region. Abdominal and Pelvis CT scan had demonstrated significant pneumoperitoneum and inflammation around his sigmoid colon * Post op , he is afebrile ,abdominal pain is less, has passed gas , colostomy is functioning well. other vitals are stable * Postop labs: white count trending down 12.3 -9.3, postop hemoglobin 13.5 Plan * Gradually advance diet starting full liquid to soft diet as he tolerates later today. * Increase activity as tolerated * Adequate analgesia. * Colostomy care. wound toilet * Intake and output, monitor vital * GI and DVT prophylaxis * Intensive spirometry * Trends labs Subjective Patient reports: no new complaints, feels better, pain is less, flatus, no bowel movement, afebrile Narrative: He is is a 58 year old male admitted for severe abdominal pain, exploratory laparotomy sigmoid resection colostomy formation done ( 12/25/2018 ) . Today is 4th postoperative day. Patient is improving gradually. His vitals are normal, afebrile, post op labs : WBC 9.3, HB 13.5 , Na 136, K 3.6. Wound yamil 60ml, Urine output : adequate We are planning to gradually advance diet full liquid today. We have already consulted colostomy educator . We appreciate PT and OT recommendation. We have encouraged him to ambulate as he tolerates. Objective Vital Signs - Last 8 Hours Temp Pulse Resp BP Pulse Ox 12/29/18 07:14 97.6 F 72 16 150/77 93 12/29/18 04:47 98.3 F 73 18 130/74 90 Intake and Output 12/28/18 12/29/18 12/29/18 23:59 07:59 15:59 Intake Total 1460 / 3400 550 / 550 Output Total 250 / 4120 2135 / 2685 550 / 2685 Balance 1210 / -720 -1585 / -2135 -550 / -2135 Intake: IV Fluids 1100 / 2200 100 / 100 KCl 20mEq IN D5%-0.45 NACL 20 1000 / 1000 meq In 1,000 ml @ 75 mls/hr IVC .[id number] [facility] Rx#:[id number] Zosyn 3.375 GM In 0.9 % Sodium 100 / 200 100 / 100 Chloride (Mini-Bag +) 100 ML @ 25 mls/hr IVPB Q8HR [facility] Rx#: [id number] Oral 360 / 1200 450 / 450 Output: Urine 250 / 975 2075 / 2625 550 / 2625 Wound Drainage 60 / 60 Right Abdomen 60 / 60 Other: Meal Dinner Percent of Meal Consumed 100% Blood Glucose* 294 182 - General physical appearance well nourished, no distress - Eyes PERRL, normal ocular movement - ENT normal nares, normal mucosa - Neck Neck exam: no bruits, trachea midline, no lymphadectomy - Respiratory normal respiratory effort, clear to percussion - Cardiovascular Cardiovascular exam: Present: RRR, regular rhythm, no murmurs/rubs/gallops - Abdomen Abdomen: Present: bowel sounds present, soft, distended, tender. Absent: guarding, rebound, rigid Hernia: none - Incision Incision: Present: clean and dry, intact - Integumentary no rash - Neurologic CN 2-12 grossly intact, normal coordination, normal sensation - Musculoskeletal normal gait - Psychiatric oriented to time, oriented to person, oriented to place, speech is normal - Labs 12/29/18 04:58 12/29/18 04:58 Diabetes panel 12/29/18 Range/Units 04:58 Sodium 136 (136-145) mEq/L Potassium 3.6 (3.5-5.1) mEq/L Chloride 103 (98-107) mEq/L Carbon Dioxide 24 (23-29) mEq/L BUN 11 (8-23) mg/dL Creatinine 0.61 L (0.70-1.30) mg/dL Glucose 206 H (70-105) mg/dL Calcium 8.7 (8.6-10.3) mg/dL Calcium panel 12/29/18 Range/Units 04:58 Calcium 8.7 (8.6-10.3) mg/dL Phosphorus 3.4 (2.7-4.5) mg/dL Pituitary panel 12/29/18 Range/Units 04:58 Sodium 136 (136-145) mEq/L Potassium 3.6 (3.5-5.1) mEq/L Chloride 103 (98-107) mEq/L Carbon Dioxide 24 (23-29) mEq/L BUN 11 (8-23) mg/dL Creatinine 0.61 L (0.70-1.30) mg/dL Glucose 206 H (70-105) mg/dL Calcium 8.7 (8.6-10.3) mg/dL Adrenal panel 12/29/18 Range/Units 04:58 Sodium 136 (136-145) mEq/L Potassium 3.6 (3.5-5.1) mEq/L Chloride 103 (98-107) mEq/L Carbon Dioxide 24 (23-29) mEq/L BUN 11 (8-23) mg/dL Creatinine 0.61 L (0.70-1.30) mg/dL Glucose 206 H (70-105) mg/dL Calcium 8.7 (8.6-10.3) mg/dL Consult Discharge Plan - Plan Instructions: Colostomy Care (DC), Colectomy (DC), Colostomy Creation (DC) Additional Instructions: General Surgical Discharge Instructions 1. No pushing, pulling, or lifting greater than 15 lbs for 6 weeks (depending upon procedure). 2. You may shower beginning today, but no tub baths, soaking, or swimming for 2 weeks. 3. You may resume driving when you are off narcotics and are safe to react in a car. 4. Take ibuprofen every 8 hours for discomfort. If this does not relieve discomfort, you may take the as needed Percocet. Take narcotics as directed. Do not take more narcotics then directed and do not share your narcotics with any other person. Do not drink alcohol while on narcotics. 5. Take stool softeners (Colace) or a water based laxative (Miralax) while taking narcotics. You may hold for loose stools. 6. Report any fevers greater than 100.5F, increase abdominal discomfort, drainage that looks like pus, increased redness or pain at the surgical site, or any vomiting. 7. Report any pain in the calves, shortness of breath, or rapid heartbeat. 8. Follow-up in the office as directed. 9. If you were prescribed antibiotics, do not stop them without talking to your provider. Follow the new ostomy diet Referrals: Rahat Hendrickson MD [Emergency Provider] - 01/19/19 9:00 am Jer Baires DO [Primary Care Provider] - <Rahat Hendrickson - Last Filed: 12/29/18 15:32> Date of Encounter: 12/29/18 - Assessment and Plan (1) Diverticulitis Current Visit: Yes Status: Inactive Objective Vital Signs - Last 8 Hours Temp Pulse Resp BP Pulse Ox 12/29/18 11:00 98.2 F 81 16 122/76 99 Intake and Output 12/28/18 12/29/18 12/29/18 23:59 07:59 15:59 Intake Total 1460 / 3400 550 / 550 0 / 550 Output Total 250 / 4120 2135 / 2685 550 / 2685 Balance 1210 / -720 -1585 / -2135 -550 / -2135 Intake: IV Fluids 1100 / 2200 100 / 100 0 / 100 KCl 20mEq IN D5%-0.45 NACL 20 1000 / 1000 0 / 0 meq In 1,000 ml @ 75 mls/hr IVC .[id number] [facility] Rx#:[id number] Zosyn 3.375 GM In 0.9 % Sodium 100 / 200 100 / 100 Chloride (Mini-Bag +) 100 ML @ 25 mls/hr IVPB Q8HR [facility] Rx#: [id number] Oral 360 / 1200 450 / 450 Output: Urine 250 / 975 2075 / 2625 550 / 2625 Wound Drainage 60 / 60 Right Abdomen 60 / 60 Other: Meal Dinner Percent of Meal Consumed 100% Blood Glucose* 294 182 298 - Labs 12/29/18 04:58 12/29/18 04:58 Diabetes panel 12/29/18 Range/Units 04:58 Sodium 136 (136-145) mEq/L Potassium 3.6 (3.5-5.1) mEq/L Chloride 103 (98-107) mEq/L Carbon Dioxide 24 (23-29) mEq/L BUN 11 (8-23) mg/dL Creatinine 0.61 L (0.70-1.30) mg/dL Glucose 206 H (70-105) mg/dL Calcium 8.7 (8.6-10.3) mg/dL Calcium panel 12/29/18 Range/Units 04:58 Calcium 8.7 (8.6-10.3) mg/dL Phosphorus 3.4 (2.7-4.5) mg/dL Pituitary panel 12/29/18 Range/Units 04:58 Sodium 136 (136-145) mEq/L Potassium 3.6 (3.5-5.1) mEq/L Chloride 103 (98-107) mEq/L Carbon Dioxide 24 (23-29) mEq/L BUN 11 (8-23) mg/dL Creatinine 0.61 L (0.70-1.30) mg/dL Glucose 206 H (70-105) mg/dL Calcium 8.7 (8.6-10.3) mg/dL Adrenal panel 12/29/18 Range/Units 04:58 Sodium 136 (136-145) mEq/L Potassium 3.6 (3.5-5.1) mEq/L Chloride 103 (98-107) mEq/L Carbon Dioxide 24 (23-29) mEq/L BUN 11 (8-23) mg/dL Creatinine 0.61 L (0.70-1.30) mg/dL Glucose 206 H (70-105) mg/dL Calcium 8.7 (8.6-10.3) mg/dL - Attending Attestation patient seen and examined. i have reviewed all notes, imaging, and labs. i have discussed the case in detail with the resident. i agree with the above assessment and plan and wish to add the following... 58M POD #4 s/p sigmoid resection and colostomy formation 2/2 perforated diverticulitis; tolerating diet, afebrile; OOBTC, PT/OT, ambulate in the hallways adv diet as tolerated colostomy education cont pain control will plan for d/c in 24-48hrs
[2018-12-29] MEDS: D5% in 0.45% NACL w KCl 20 MEQ/1,000 ML MLS IVC SCH (12:10)
[2018-12-29] MEDS: PCA IVC PRN (16:22)
[2018-12-29] MEDS: MORPHINE IVC PRN (16:22)
[2018-12-29] MEDS ORDERED: *HR* OxyCODONE Immed Rel 5 MG TABLET PO PRN (22:58)
[2018-12-30] MEDS: Piperacillin/Tazobactam 3.375 GM in 0.9 % Sodium Chloride Mini Bag 100 ML IVPB SCH ×4 (00:04→23:41)
[2018-12-30] MEDS: *HR* Enoxaparin 40 MG/0.4 ML SYRINGE SQ SCH (05:36)
[2018-12-30] MEDS: Insulin LISPRO 300 UNITS/3 ML VIAL SQ SCH ×4 (07:52→21:21)
[2018-12-30] MEDS: Gabapentin 300 MG CAPSULE PO SCH ×3 (07:53→21:19)
--- NOTE | 2018-12-30 09:25 | AcuteCareSurgery Progress Note ---
Date of Encounter: 12/30/18 Time of Encounter: 07:10 - Assessment and Plan (1) Diverticulitis Current Visit: Yes Status: Acute The patient has Ucevas's procedure. The ostomy is pink. He will have ostomy training today. We will plan to go to extended care facility tomorrow with the patient does well with his training and diet. Subjective Narrative: The patient is doing well after Cuevas's procedure for perforated diverticulitis. He will undergo ostomy training today. We will advance his diet to 1800 ADA diabetic diet and continue his insulin coverage. Glucose levels have been running high even with sliding scale. The [employer] machine has been discontinued and the patient has been started on oxycodone with good pain control. Discharge planning Objective Vital Signs - Last 8 Hours Temp Pulse Resp BP Pulse Ox 12/30/18 07:23 98.0 F 72 16 126/76 92 12/30/18 03:18 97.8 F 69 16 125/81 92 Intake and Output 12/29/18 12/30/18 12/30/18 23:59 07:59 15:59 Intake Total 940 / 1590 400 / 400 Output Total 1220 / 3905 1110 / 1110 Balance -280 / -2315 -710 / -710 Intake: IV Fluids 100 / 300 100 / 100 Zosyn 3.375 GM In 0.9 % Sodium 100 / 300 100 / 100 Chloride (Mini-Bag +) 100 ML @ 25 mls/hr IVPB Q8HR KENYA Rx#: [id number] Oral 840 / 1290 300 / 300 Output: Urine 1200 / 3825 1110 / 1110 Wound Drainage 20 / 80 Right Abdomen 20 / 80 Other: Meal Dinner Percent of Meal Consumed 100% # Bowel Movements 0 0 Weight 112.1 kg Blood Glucose* 249 120 Patient Weight 12/30/18 23:59 Weight 112.1 kg - General physical appearance well developed, well nourished, moderate pain, obese - Respiratory normal expansion, normal respiratory effort, clear to percussion, clear to auscultation - Cardiovascular Cardiovascular exam: Present: RRR, no murmurs/rubs/gallops - Abdomen Abdomen: Present: bowel sounds present, soft (Ostomy is pink and functional) - Incision Incision: Present: clean and dry - Neurologic CN 2-12 grossly intact, normal coordination, normal sensation - Psychiatric oriented to time, oriented to person, oriented to place, speech is normal, memory intact - Labs 12/29/18 04:58 12/29/18 04:58 Consult Discharge Plan - Plan Instructions: Colostomy Care (DC), Colectomy (DC), Colostomy Creation (DC) Additional Instructions: General Surgical Discharge Instructions 1. No pushing, pulling, or lifting greater than 15 lbs for 6 weeks (depending upon procedure). 2. You may shower beginning today, but no tub baths, soaking, or swimming for 2 weeks. 3. You may resume driving when you are off narcotics and are safe to react in a car. 4. Take ibuprofen every 8 hours for discomfort. If this does not relieve discomfort, you may take the as needed Percocet. Take narcotics as directed. Do not take more narcotics then directed and do not share your narcotics with any other person. Do not drink alcohol while on narcotics. 5. Take stool softeners (Colace) or a water based laxative (Miralax) while taking narcotics. You may hold for loose stools. 6. Report any fevers greater than 100.5F, increase abdominal discomfort, drainage that looks like pus, increased redness or pain at the surgical site, or any vomiting. 7. Report any pain in the calves, shortness of breath, or rapid heartbeat. 8. Follow-up in the office as directed. 9. If you were prescribed antibiotics, do not stop them without talking to your provider. Follow the new ostomy diet Referrals: Rahat Hendrickson MD [Emergency Provider] - 01/19/19 9:00 am Jer Baires DO [Primary Care Provider] -
[2018-12-30] MEDS ORDERED: traMADol 50 MG TABLET PO PRN (15:06)
[2018-12-30] MEDS ORDERED: *HR* HYDROmorphone 2 MG/ML SYRINGE IVP PRN (15:07)
[2018-12-30] MEDS ORDERED: *HR* OxyCODONE Immed Rel 5 MG TABLET PO PRN (15:09)
[2018-12-31] MEDS: *HR* Enoxaparin 40 MG/0.4 ML SYRINGE SQ SCH (05:55)
[2018-12-31] MEDS: Gabapentin 300 MG CAPSULE PO SCH ×2 (08:16→15:37)
[2018-12-31] MEDS: Piperacillin/Tazobactam 3.375 GM in 0.9 % Sodium Chloride Mini Bag 100 ML IVPB SCH (08:16)
[2018-12-31] MEDS: Insulin LISPRO 300 UNITS/3 ML VIAL SQ SCH ×2 (08:18→12:26)
--- NOTE | 2018-12-31 10:58 | AcuteCareSurgery Progress Note ---
<Pna Diaz P - Last Filed: 12/31/18 14:14> Date of Encounter: 12/31/18 Time of Encounter: 10:00 - Assessment and Plan (1) Diverticulitis Current Visit: Yes Status: Acute * Today is 6th postoperative after Cuevas's procedure. The patient was admitted for one day history of worsening abdominal pain localized to the LLQ and suprapubic region. Abdominal and Pelvis CT scan had demonstrated significant pneumoperitoneum and inflammation around his sigmoid colon * Post op , he is afebrile ,abdominal pain is less, has passed gas , Ostomy is functioning well. other vitals are stable * Postop labs: white count trending down 9.3, postop hemoglobin 13.5, blood glucose 209 Plan * We are planning to send him to extended care facility at [facility], waiting for insurance approval * We have ordered ostomy education Wound care today * Will sSwitch to oral antibiotic Augmentin and he will take for 7 days after discharge from hospital ( if he discharged) * Gradually advance diet starting full liquid to soft diet as he tolerates * Increase activity as tolerated * Adequate analgesia. * Intake and output, monitor vital * GI and DVT prophylaxis * Intensive spirometry * Trends labs Subjective Patient reports: feels better, pain is less, bowel movement, afebrile Narrative: Today is sixth postop day after Cuevas's procedure for perforated diverticulitis. The patient is gradually recovering from surgery, he has full functioning ostomy. He stated that his abdominal pain is less, no nausea and vomiting, no fever, wound is clean no sign of infection. Drain is functioning well. His vitals are stable temperature 97.7 F, pulse 70, blood pressure 132/78, saturation 93% on room air. We are planning to send him to extended care facility at [facility] but he is waiting for approval from his insurance. We will see stool antibiotic Augmentin and he will take for 7 days after discharge from hospital. He is a diabetic and he is on diabetic diet, we will resume his home diabetic medication after he is discharged from the hospital. He will be getting wound care and Ostomy education in today Objective Vital Signs - Last 8 Hours Temp Pulse Resp BP Pulse Ox 12/31/18 07:08 97.7 F 70 16 132/78 93 12/31/18 03:15 98.2 F 72 16 125/71 93 Intake and Output 06/13/19 06/14/19 06/14/19 23:59 07:59 15:59 Intake Total 600 / 1780 200 / 200 Output Total 560 / 3245 1860 / 2360 500 / 2360 Balance 40 / -1465 -1660 / -2160 -500 / -2160 Intake: IV Fluids 100 / 300 100 / 100 Zosyn 3.375 GM In 0.9 % Sodium 100 / 300 100 / 100 Chloride (Mini-Bag +) 100 ML @ 25 mls/hr IVPB Q8HR KENYA Rx#: [id number] Oral 500 / 1480 100 / 100 Output: Urine 500 / 3010 1750 / 2250 500 / 2250 Stool 100 / 100 Wound Drainage 60 / 235 10 / 10 Right Abdomen 60 / 235 10 / 10 Other: # Voids 0 # Bowel Movements 0 0 Weight 112.6 kg Blood Glucose* 208 209 Patient Weight 12/31/18 23:59 Weight 112.6 kg - General physical appearance well nourished, no distress, moderate pain - Eyes normal ocular movement - ENT normal mucosa - Neck Neck exam: no masses, no bruits, no lymphadectomy, no venous distension - Cardiovascular Cardiovascular exam: Present: RRR, regular rhythm, no murmurs/rubs/gallops - Abdomen Abdomen: Present: soft, tender. Absent: guarding, rebound, rigid Hernia: none Additional Comments: He has well-functioning ostomy, and drain in situ, - Integumentary no rash - Neurologic CN 2-12 grossly intact - Musculoskeletal normal gait - Psychiatric oriented to time, oriented to person, oriented to place, speech is normal - Labs 12/29/18 04:58 12/29/18 04:58 Consult Discharge Plan - Plan Instructions: Colostomy Care (DC), Colostomy Care (GEN), Colectomy (DC), Colostomy Creation (DC) Additional Instructions: General Surgical Discharge Instructions 1. No pushing, pulling, or lifting greater than 15 lbs for 6 weeks (depending upon procedure). 2. You may shower beginning today, but no tub baths, soaking, or swimming for 2 weeks. 3. You may resume driving when you are off narcotics and are safe to react in a car. 4. Take ibuprofen every 8 hours for discomfort. If this does not relieve discomfort, you may take the as needed Percocet. Take narcotics as directed. Do not take more narcotics then directed and do not share your narcotics with any other person. Do not drink alcohol while on narcotics. 5. Take stool softeners (Colace) or a water based laxative (Miralax) while taking narcotics. You may hold for loose stools. 6. Report any fevers greater than 100.5F, increase abdominal discomfort, drainage that looks like pus, increased redness or pain at the surgical site, or any vomiting. 7. Report any pain in the calves, shortness of breath, or rapid heartbeat. 8. Follow-up in the office as directed. 9. If you were prescribed antibiotics, do not stop them without talking to your provider. Follow the new ostomy diet Referrals: Rahat Hendrickson MD [Emergency Provider] - 01/19/19 9:00 am Jer Baires DO [Primary Care Provider] - Prescriptions: Nebivolol [Bystolic] 5 mg PO DAILY 30 Days #30 tablet Losartan [Cozaar] 50 mg PO DAILY 30 Days #30 tablet Gabapentin [Neurontin] 300 mg PO TID 30 Days #90 capsule OxyCODONE Immed Rel [Roxicodone 5 MG] 5 mg PO Q6HR PRN 7 Days #28 tablet PRN Reason: Severe Pain Levothyroxine [Synthroid] 150 mcg PO 0630 30 Days #30 tablet <[address] - Last Filed: 12/31/18 15:57> Date of Encounter: 12/31/18 Objective Vital Signs - Last 8 Hours Temp Pulse Resp BP Pulse Ox 12/31/18 15:30 97.9 F 73 18 125/76 92 12/31/18 11:22 97.8 F 69 18 137/78 97 Intake and Output 12/30/18 12/31/18 12/31/18 23:59 07:59 15:59 Intake Total 600 / 1780 200 / 320 120 / 320 Output Total 560 / 3245 1860 / 2360 500 / 2360 Balance 40 / -1465 -1660 / -2040 -380 / -2040 Intake: IV Fluids 100 / 300 100 / 100 Zosyn 3.375 GM In 0.9 % Sodium 100 / 300 100 / 100 Chloride (Mini-Bag +) 100 ML @ 25 mls/hr IVPB Q8HR KENYA Rx#: [id number] Oral 500 / 1480 100 / 220 120 / 220 Output: Urine 500 / 3010 1750 / 2250 500 / 2250 Stool 100 / 100 Wound Drainage 60 / 235 10 / 10 0 / 10 Right Abdomen 60 / 235 10 / 10 0 / 10 Other: Meal Lunch Percent of Meal Consumed 100% # Voids 0 # Bowel Movements 0 0 Weight 112.6 kg Blood Glucose* 208 209 245 Patient Weight 12/31/18 23:59 Weight 112.6 kg - Labs 12/29/18 04:58 12/29/18 04:58 - Attending Attestation I examined this patient and my medical decision-making was reviewed with the Resident Physician. I agree with the documented findings, disposition and treatment plan as described except to the extent set forth below. I reviewed the above assessment and evaluation and agree with the above plan. Patient is tolerating by mouth diet. Incision shows arturo in place. There is some mild drainage from the lower pole of the incision. We will start covering with 4 x 4 gauze. Continue IV antibiotics and total time for discharge in which case we will change him to oral antibiotics. Awaiting acceptance at [facility].
--- NOTE | 2018-12-31 14:56 | Discharge Summary ---
<Pan Diaz P - Last Filed: 12/31/18 15:04> - NOTES TO OUTPATIENT PROVIDER Notes to Outpatient Provider: He will follow-up in outpatient surgery within 2 weeks ( with Dr perea). Please repeat and follow the instructions for general surgery and drain. Date of Encounter: 12/31/18 Time of Encounter: 02:45 - Discharge Diagnosis (1) Diverticulitis Priority: Primary Status: Acute General Surgery Exam Initial Vital Signs Temp Pulse Resp BP Pulse Ox 98.4 F 94 24 114/72 94 12/24/18 21:35 12/24/18 21:35 12/24/18 21:35 12/24/18 21:35 12/24/18 21:35 - General physical appearance well nourished, no distress, no pain - Eyes PERRL, normal ocular movement - ENT normal mucosa - Neck trachea midline, no lymphadectomy, no venous distension - Respiratory normal expansion, normal respiratory effort, clear to percussion - Cardiovascular Cardiovascular exam: Present: RRR, regular rhythm, no murmurs/rubs/gallops - Abdomen Abdomen general surgery: Present: bowel sounds present, soft, tender. Absent: guarding, rebound, rigid Hernia: Present: none - Incision Incision: Present: clean and dry, intact - Integumentary Integumentary general surgery: Present: warm and dry - Neurologic Present: CN 2-12 grossly intact, normal coordination, normal sensation - Musculoskeletal Present: normal gait - Psychiatric Psychiatric general surgery: Present: A&Ox3, appropriate, oriented to person (He has well-functioning ostomy with bag , drain in situ.) - Hospital Course Hospital course: Mr. Torres is a 58 year old male - Time Spent with Patient Total time spent providing and/or coordinating discharge services: - Discharge Medications Prescriptions: New Nebivolol [Bystolic] 5 mg PO DAILY 30 Days #30 tablet Losartan [Cozaar] 50 mg PO DAILY 30 Days #30 tablet Gabapentin [Neurontin] 300 mg PO TID 30 Days #90 capsule OxyCODONE Immed Rel [Roxicodone 5 MG] 5 mg PO Q6HR PRN 7 Days #28 tablet PRN Reason: Severe Pain Levothyroxine [Synthroid] 150 mcg PO 0630 30 Days #30 tablet Continued Aspirin 81 mg PO DAILY Pravastatin Sodium [Pravachol] 80 mg PO DAILY Ascorbate Calcium [Vitamin C] 500 mg PO DAILY Empagliflozin [Jardiance] 25 mg PO DAILY Cyanocobalamin (B-12) [Vitamin B12] 1,000 mcg IM VASQUES Dulaglutide [Trulicity] 1.5 mg SQ VASQUES Irbesartan [Avapro] 300 mg PO DAILY Levothyroxine [Synthroid] 175 mcg PO QAM Meloxicam 15 mg PO DAILY Metformin HCl [Fortamet] 1,000 mg PO BID Nebivolol HCl [Bystolic] 10 mg PO DAILY Pioglitazone HCl 45 mg PO DAILY Home Medications: Ascorbate Calcium [Vitamin C] 500 mg PO DAILY 01/03/16 [History] Aspirin 81 mg PO DAILY 01/03/16 [History] Pravastatin Sodium [Pravachol] 80 mg PO DAILY 01/03/16 [History] Empagliflozin [Jardiance] 25 mg PO DAILY 05/20/17 [History] Cyanocobalamin (B-12) [Vitamin B12] 1,000 mcg IM VASQUES 12/26/18 [History] Dulaglutide [Trulicity] 1.5 mg SQ VASQUES 12/26/18 [History] Irbesartan [Avapro] 300 mg PO DAILY 12/26/18 [History] Levothyroxine [Synthroid] 175 mcg PO QAM 12/26/18 [History] Meloxicam 15 mg PO DAILY 12/26/18 [History] Metformin HCl [Fortamet] 1,000 mg PO BID 12/26/18 [History] Nebivolol HCl [Bystolic] 10 mg PO DAILY 12/26/18 [History] Pioglitazone HCl 45 mg PO DAILY 12/26/18 [History] Gabapentin [Neurontin] 300 mg PO TID 30 Days #90 capsule 12/31/18 [Rx] Levothyroxine [Synthroid] 150 mcg PO 0630 30 Days #30 tablet 12/31/18 [Rx] Losartan [Cozaar] 50 mg PO DAILY 30 Days #30 tablet 12/31/18 [Rx] Nebivolol [Bystolic] 5 mg PO DAILY 30 Days #30 tablet 12/31/18 [Rx] OxyCODONE Immed Rel [Roxicodone 5 MG] 5 mg PO Q6HR PRN 7 Days #28 tablet 12/31/18 [Rx] Allergies/Adverse Reactions: Allergy/AdvReac Type Severity Reaction Status Date / Time Sulfa (Sulfonamide Allergy Difficulty Verified 12/26/18 16:58 Antibiotics) Breathing Date of admission: 12/24/18 22:23 Primary care physician: Jer Baires DO Consults: 12/25/18 02:34 Consult to Enterostomal Therapist [CONS] Routine Reason for Consult: s/p colostomy formation Call Completed: No 12/27/18 08:45 Consult to Occupational Therapy [CONS] Routine Comment: Evaluate, develop and implement POC Reason for Consult: Post op Does patient have active BEDREST order?: No Is patient medically & hemodynamically stable?: Yes Patient assessed for mobility or mobilized this visit?: Yes Consult to Physical Therapy [CONS] Routine Comment: Evaluate, develop and implement POC Reason for Consult: Post op Does patient have active BEDREST order?: No Is patient medically & hemodynamically stable?: Yes Patient assessed for mobility or mobilized this visit?: Yes 12/28/18 17:17 Consult to Nutrition [CONS] Routine Comment: New colostomy diet Consulting Provider: NUTRITION Reason for Dietary Consult: Diet Education Consult to Assessment Nurse [CONS] Routine Reason for SW Consult: Home health care for new ostomy care Procedures and tests throughout hospitalization: exploratory laparotomy sigmoid resection colostomy formationtion( Cuevas's procedure) Labs on day of discharge: Labs from last 24 hours 12/31/18 12/31/18 12/30/18 12:21 07:41 20:30 POC Glucose 245 H 209 H 208 H 12/30/18 12/30/18 17:08 13:05 POC Glucose 237 H 204 H - Patient Status Disposition: Transfer SNF Condition: Fair Functional capacity at discharge: independent ambulation Overall status at discharge: patient is progressing back to baseline - Discharge Instructions Instructions: Colostomy Care (DC), Colostomy Care (GEN), Colectomy (DC), Colostomy Creation (DC) Follow Up With: Rahat Perea MD [Emergency Provider] - 01/19/19 9:00 am Jer Baires DO [Primary Care Provider] - Forms: ED Satisfaction Letter, Work/School Release Additional Instructions: General Surgical Discharge Instructions 1. No pushing, pulling, or lifting greater than 15 lbs for 6 weeks (depending upon procedure). 2. You may shower beginning today, but no tub baths, soaking, or swimming for 2 weeks. 3. You may resume driving when you are off narcotics and are safe to react in a car. 4. Take ibuprofen every 8 hours for discomfort. If this does not relieve discomfort, you may take the as needed Percocet. Take narcotics as directed. Do not take more narcotics then directed and do not share your narcotics with any other person. Do not drink alcohol while on narcotics. 5. Take stool softeners (Colace) or a water based laxative (Miralax) while taking narcotics. You may hold for loose stools. 6. Report any fevers greater than 100.5F, increase abdominal discomfort, drainage that looks like pus, increased redness or pain at the surgical site, or any vomiting. 7. Report any pain in the calves, shortness of breath, or rapid heartbeat. 8. Follow-up in the office as directed. 9. If you were prescribed antibiotics, do not stop them without talking to your provider. Follow the new ostomy diet - Diet and Activity Activity: resume usual activities as tolerated Diet: diabetic diet <Rahat Perea - Last Filed: 12/31/18 15:14> Date of Encounter: 12/31/18 - Discharge Diagnosis (1) Diverticulitis Status: Inactive General Surgery Exam Initial Vital Signs Temp Pulse Resp BP Pulse Ox 98.4 F 94 24 114/72 94 12/24/18 21:35 12/24/18 21:35 12/24/18 21:35 12/24/18 21:35 12/24/18 21:35 - Hospital Course Hospital course: Mr. Torres is a 58 year old male - Time Spent with Patient Total time spent providing and/or coordinating discharge services: Date of admission: 12/24/18 22:23 Primary care physician: Jer Baires DO Consults: 12/25/18 02:34 Consult to Enterostomal Therapist [CONS] Routine Reason for Consult: s/p colostomy formation Call Completed: No 12/27/18 08:45 Consult to Occupational Therapy [CONS] Routine Comment: Evaluate, develop and implement POC Reason for Consult: Post op Does patient have active BEDREST order?: No Is patient medically & hemodynamically stable?: Yes Patient assessed for mobility or mobilized this visit?: Yes Consult to Physical Therapy [CONS] Routine Comment: Evaluate, develop and implement POC Reason for Consult: Post op Does patient have active BEDREST order?: No Is patient medically & hemodynamically stable?: Yes Patient assessed for mobility or mobilized this visit?: Yes 12/28/18 17:17 Consult to Nutrition [CONS] Routine Comment: New colostomy diet Consulting Provider: NUTRITION Reason for Dietary Consult: Diet Education Consult to Assessment Nurse [CONS] Routine Reason for SW Consult: Home health care for new ostomy care Labs on day of discharge: Labs from last 24 hours 12/31/18 12/31/18 12/30/18 12:21 07:41 20:30 POC Glucose 245 H 209 H 208 H 12/30/18 12/30/18 17:08 13:05 POC Glucose 237 H 204 H - Attending Attestation I have personally seen and examined the patient. I have reviewed pertinent labs, imaging, progress notes, including this one. I have discussed the plan in thorough detail with the resident and nurse practitioner. I agree with the above assessment and plan and wish to add the following... POD #5 s/p sigmoid resection and stephen's procedure; voiding on his own, bowel function, tolerating diet, pain controlled; meets discharge criteria; going to rehab center for ~ 1 week; follow up in 2-4 weeks; will need 5 day course of abx and home health to follow up on colostomy care
--- NOTE | 2018-12-31 15:09 | Physician Discharge Referral ---
ExtendedCare Referral Info Transfer To: Extended care facility [facility] Provider in Charge after Transfer: PCP Institutional Level of Care: Skilled - Diagnosis (1) Diverticulitis Priority: Primary Status: Acute Prognosis: Fair Aware of Diagnosis: Patient, Family Aware of Prognosis: Patient, Family - Transfer Medications Prescriptions: Nebivolol [Bystolic] 5 mg PO DAILY 30 Days #30 tablet Losartan [Cozaar] 50 mg PO DAILY 30 Days #30 tablet Gabapentin [Neurontin] 300 mg PO TID 30 Days #90 capsule OxyCODONE Immed Rel [Roxicodone 5 MG] 5 mg PO Q6HR PRN 7 Days #28 tablet PRN Reason: Severe Pain Levothyroxine [Synthroid] 150 mcg PO 0630 30 Days #30 tablet Home Medications: Ascorbate Calcium [Vitamin C] 500 mg PO DAILY 01/03/16 [History] Aspirin 81 mg PO DAILY 01/03/16 [History] Pravastatin Sodium [Pravachol] 80 mg PO DAILY 01/03/16 [History] Empagliflozin [Jardiance] 25 mg PO DAILY 05/20/17 [History] Cyanocobalamin (B-12) [Vitamin B12] 1,000 mcg IM VASQUES 12/26/18 [History] Dulaglutide [Trulicity] 1.5 mg SQ VASQUES 12/26/18 [History] Irbesartan [Avapro] 300 mg PO DAILY 12/26/18 [History] Levothyroxine [Synthroid] 175 mcg PO QAM 12/26/18 [History] Meloxicam 15 mg PO DAILY 12/26/18 [History] Metformin HCl [Fortamet] 1,000 mg PO BID 12/26/18 [History] Nebivolol HCl [Bystolic] 10 mg PO DAILY 12/26/18 [History] Pioglitazone HCl 45 mg PO DAILY 12/26/18 [History] Gabapentin [Neurontin] 300 mg PO TID 30 Days #90 capsule 12/31/18 [Rx] Levothyroxine [Synthroid] 150 mcg PO 0630 30 Days #30 tablet 12/31/18 [Rx] Losartan [Cozaar] 50 mg PO DAILY 30 Days #30 tablet 12/31/18 [Rx] Nebivolol [Bystolic] 5 mg PO DAILY 30 Days #30 tablet 12/31/18 [Rx] OxyCODONE Immed Rel [Roxicodone 5 MG] 5 mg PO Q6HR PRN 7 Days #28 tablet 12/31/18 [Rx] Allergies/Adverse Reactions: Allergy/AdvReac Type Severity Reaction Status Date / Time Sulfa (Sulfonamide Allergy Difficulty Verified 12/26/18 16:58 Antibiotics) Breathing - Respiratory Orders Smoking Cessation: Smoking cessation has been advised. For more information, call the [place] Tobacco Quit Line at 1-185-XMQO-NOW. - Advance Directives Code Status: Full Code CERTIFICATION: I certify that the transfer of the above named patient to an Extended Care Facility is necessary for the continuing treatment of the diagnosis listed. The above information is true and accurate reflection of patient's current condition. Confidential - Redisclosure prohibited without a patient's written consent.
[2018-12-31 15:37] VITALS: BP 125/76
== END 2018-12-31 17:16 | DRG 331 ==
LOC: EMEROOARM 21:19 → 3ANU 22:23
PROVIDERS: ADMIT Surgery; ATTEND Surgery

== ENCOUNTER 2019-04-22 06:17 | Inpatient (IN) ==
[2019-04-22] MEDS ORDERED: CeFAZolin Syr 2,000MG/20 ML 2,000 MG/20 ML SYRINGE IVPB ONE (06:36)
[2019-04-22] MEDS ORDERED: Ringers Solution, Lactated 1,000 ML IVC SCH (06:45)
[2019-04-22] MEDS ORDERED: Lidocaine -MPF 2% 2 ML VIAL ONE ×2 (06:51→07:04)
[2019-04-22] MEDS ORDERED: traMADol 50 MG TABLET PO ONE (06:55)
[2019-04-22] MEDS ORDERED: Pregabalin 75 MG CAPSULE PO ONE (06:55)
[2019-04-22] MEDS ORDERED: Acetaminophen IV 1,000 MG/100 ML INFUS..BTL IVPB ONE (06:56)
[2019-04-22] MEDS ORDERED: Famotidine 20 MG/2 ML VIAL IVP ONE (07:02)
[2019-04-22] MEDS ORDERED: Lidocaine -MPF 4% 5 ML AMPUL ONE (07:04)
[2019-04-22] MEDS ORDERED: *HR* Succinylcholine 200 MG/10 ML VIAL IVP ONE (07:04)
[2019-04-22] MEDS ORDERED: Dexamethasone 4 MG/ML VIAL ONE (07:04)
[2019-04-22] MEDS ORDERED: Ondansetron 4 MG/2 ML VIAL ONE (07:04)
[2019-04-22] MEDS ORDERED: *HR* FentaNYL (PF) 100 MCG/2 ML VIAL ONE (07:10)
[2019-04-22] MEDS ORDERED: *HR* Propofol 200 MG/20 ML VIAL IVP ONE (07:10)
[2019-04-22] MEDS ORDERED: *HR* Midazolam HCl 2 MG/2 ML VIAL ONE (07:10)
[2019-04-22] MEDS ORDERED: *HR* HYDROmorphone (PF) 1 MG/ML SYRINGE IVP PRN (07:41)
[2019-04-22] MEDS ORDERED: *HR* Promethazine 25 MG/ML VIAL IVP PRN (07:41)
[2019-04-22] MEDS ORDERED: Ondansetron 4 MG/2 ML VIAL IVP ONE (07:41)
[2019-04-22] MEDS ORDERED: *HR* Labetalol 20 MG/4 ML SYRINGE IVP PRN (07:41)
[2019-04-22] MEDS ORDERED: EPHEDrine 50 MG/ML VIAL ONE (08:21)
[2019-04-22] MEDS ORDERED: CefOXitin 2,000 MG VIAL ONE (08:30)
[2019-04-22] MEDS ORDERED: *HR* HYDROMORPHONE 2 MG/ML VIAL ONE ×2 (08:52→12:30)
[2019-04-22] MEDS ORDERED: MetroNIDAZOLE 500 MG/100 ML 500 MG/100 ML BAG IVPB ONE (09:03)
[2019-04-22] MEDS ORDERED: cefOXitin 2,000 MG in Water for inj. (sterile) 20 ML IVPB ONE (09:03)
[2019-04-22] MEDS ORDERED: Albumin Human 5% 25.0 GM/500 ML VIAL ONE (09:29)
[2019-04-22] MEDS ORDERED: *HR* Rocuronium Bromide 50 MG/5 ML VIAL ONE ×2 (09:59→11:45)
[2019-04-22] MEDS ORDERED: *HR* OxyCODONE Immed Rel 5 MG TABLET PO PRN (13:45)
[2019-04-22] MEDS ORDERED: Naloxone 0.4 MG/ML INJ IVP PRN (13:45)
[2019-04-22] MEDS: Gabapentin 300 MG CAPSULE PO SCH ×2 (17:54→21:33)
[2019-04-22] MEDS: Ringers Solution, Lactated 1,000 ML IVC SCH (18:04)
[2019-04-22] MEDS ORDERED: Ketorolac 15 MG/ML VIAL IVP PRN (21:38)
[2019-04-22] MEDS: Acetaminophen IV 1,000 MG/100 ML INFUS..BTL IVPB SCH (22:45)
[2019-04-23] MEDS: Ketorolac 15 MG/ML VIAL IVP SCH ×4 (00:13→17:10)
[2019-04-23 03:24] LABS: BUN/Creatinine Ratio 23 (6-26); Blood Urea Nitrogen 28 mg/dL (8-23); Carbon Dioxide 24 mEq/L (23-29); Chloride 103 mEq/L (98-107); Glucose 241 mg/dL (70-105); Magnesium 1.9 mg/dL (1.6-2.6); Osmolality,Calculated 293 (280-300); Phosphorous 4.8 mg/dL (2.7-4.5); Potassium 4.6 mEq/L (3.5-5.1); Sodium 135 mEq/L (136-145); eGFR For African Americans > 60 (> 60); eGFR For Non-African Americans 59 (> 60)
[2019-04-23] MEDS: Ringers Solution, Lactated 1,000 ML IVC SCH (03:52)
[2019-04-23] MEDS: Acetaminophen IV 1,000 MG/100 ML INFUS..BTL IVPB SCH ×4 (05:07→21:04)
[2019-04-23] MEDS: *HR* Enoxaparin 40 MG/0.4 ML SYRINGE SQ SCH (09:10)
[2019-04-23] MEDS: Gabapentin 300 MG CAPSULE PO SCH ×3 (09:11→21:05)
[2019-04-23] MEDS: (Pravastatin Sodium [Pravachol] 80 MG) PO SCH (09:12)
[2019-04-23] MEDS ORDERED: D5% in Water 1,000 ML IVC PRN (10:58)
[2019-04-23] MEDS ORDERED: *HR* Dextrose 50 % in Water (Syg) 50 ML SYRINGE IVP PRN (10:58)
[2019-04-23] MEDS ORDERED: Dextrose Gel 15 GM/37.5 ML TUBE PO PRN ×2 (10:58)
[2019-04-23] MEDS: 0.9 % Sodium Chloride 1,000 ML IVC SCH (12:32)
[2019-04-23] MEDS: Insulin LISPRO 300 UNITS/3 ML VIAL SQ SCH ×3 (12:33→20:21)
[2019-04-23] MEDS ORDERED: D5% in 0.45% NACL 1,000 ML IVC SCH ×2 (12:45)
[2019-04-24] MEDS: Ketorolac 15 MG/ML VIAL IVP SCH ×2 (00:02→05:44)
[2019-04-24] MEDS: Acetaminophen IV 1,000 MG/100 ML INFUS..BTL IVPB SCH ×2 (04:11→10:53)
[2019-04-24] MEDS: 0.9 % Sodium Chloride 1,000 ML IVC SCH ×3 (04:43→19:46)
[2019-04-24] MEDS: *HR* Enoxaparin 40 MG/0.4 ML SYRINGE SQ SCH (05:44)
[2019-04-24] MEDS: Insulin LISPRO 300 UNITS/3 ML VIAL SQ SCH ×4 (08:14→21:43)
[2019-04-24] MEDS: Gabapentin 300 MG CAPSULE PO SCH ×3 (08:15→19:47)
[2019-04-24] MEDS: (Pravastatin Sodium [Pravachol] 80 MG) PO SCH (08:26)
[2019-04-24 12:35] LABS: BUN/Creatinine Ratio 26 (6-26); Blood Urea Nitrogen 25 mg/dL (8-23); Calcium 8.8 mg/dL (8.6-10.3); Carbon Dioxide 26 mEq/L (23-29); Chloride 103 mEq/L (98-107); Glucose 177 mg/dL (70-105); Osmolality,Calculated 289 (280-300); Potassium 4.1 mEq/L (3.5-5.1); Sodium 135 mEq/L (136-145); eGFR For African Americans > 60 (> 60); eGFR For Non-African Americans > 60 (> 60)
[2019-04-25] MEDS: *HR* Enoxaparin 40 MG/0.4 ML SYRINGE SQ SCH (05:37)
[2019-04-25] MEDS: Insulin LISPRO 300 UNITS/3 ML VIAL SQ SCH ×2 (08:06→11:06)
[2019-04-25] MEDS: Gabapentin 300 MG CAPSULE PO SCH (08:07)
[2019-04-25] MEDS: (Pravastatin Sodium [Pravachol] 80 MG) PO SCH (08:08)
[2019-04-25 10:59] VITALS: BP 124/64
== END 2019-04-25 14:21 | disposition home or self-care (01) | DRG 331 ==
LOC: SAMDAY 06:17 → 3ANU 13:27
PROVIDERS: ADMIT Surgery; ATTEND Surgery